=== PATIENT | female | born 1995 | race Caucasian/White ===

== ENCOUNTER 2017-01-08 16:25 | Inpatient (IN) | payer MEDICAID ==
[~2017-01-08] VITALS: Ht 170.2 cm; Wt 98.0 kg
--- NOTE | ~2017-01-08 | ECHO ---
Transthoracic Echocardiography Report (TTE) Demographics Patient Name DONALDO BARBER Date of Study 01/11/2017 Patient Number [id number] Visit Number [id number] Date of 1995 Room Number G6323 Accession Number [id number] Gender Female Age 21 year(s) Referring Chris Bueno MD Plant Utility Person Rosy Castellanos [facility], Physician Dae Beck RVT Physician Interpreting Devonte Awan MD Women'S Swim Coach Physician Supervising Ordering Physician Devonte Awan MD, MD/MLP Nurse Stress Computer Salesperson Retail Conclusions Summary The estimated left ventricular ejection fraction is 60-65%. The left ventricle is mildly dilated . Mild concentric left ventricular hypertrophy. Diastolic assessment reveals normal relaxation. The left atrium is dilated by LA volume index measurement. Procedure Type of Study TTE procedure:2D Echocardiogram. Procedure Date Date: 01/11/2017 Start: 10:13 AM Study Location: Inpatient Portable Technical Quality: Adequate visualization Indications:Pulmonary edema. Appropriate Use Criteria: 9 Patient Status: STAT Rhythm: Within normal limits HR: 60 bpm BP: 106/57 mmHg M-Mode/2D Measurements LV Diastolic Dimension: 5.24 cm LV Systolic Dimension: 3.55 cm LV Septum Diastolic: 0.95 cm LV Septum Systolic: 3.99 cm LV PW Diastolic: 0.97 cm AO Root Dimension: 2.3 cm Cardiac Output: 4.82 l/min AV Cusp Separation: 1.7 cm RV Diastolic Dimension: 2.42 cm LA volume: 67 ml IVC Inspiration: 1.06 cm LVOT: 2.1 cm RV Base: 3.68 cm LVOT VTI: 23.2 cm RV Mid: 3.22 cm LV Stroke volume: 80.31 ml TAPSE: 2.3 cm Doppler Measurements AV Peak Velocity: 1.65 m/s MV Peak E-Wave: 1.3 m/s AV Peak Gradient: 10.89 mmHg MV Peak A-Wave: 0.52 m/s AV Mean Gradient: 5 mmHg MV E/A Ratio: 2.52 LVOT Peak Velocity: 1.02 m/s MV P1/2t: 66 msec TR Gradient:24.21 mmHg PV Peak Velocity: 1.18 m/s Estimated RAP:5 mmHg PV Peak Gradient: 5.57 mmHg Estimated RVSP: 29 mmHg Estimated PASP: 29.21 mmHg E' Lateral Velocity: 0.13 m/s A' Lateral Velocity: 0.07 m/s MV E/E' Ratio: 9 Findings Left Ventricle The estimated left ventricular ejection fraction is 60-65%. The left ventricle is mildly dilated . Diastolic assessment reveals normal relaxation. Right Ventricle Normal right ventricle structure and function. Left Atrium Normal left atrial size. Right Atrium Normal right atrial size. Mitral Valve Trivial mitral regurgitation by color Doppler. Aortic Valve Normal aortic valve structure and function. Tricuspid Valve Mild tricuspid regurgitation by color Doppler. Pulmonic Valve The pulmonic valve is not well visualized. Pericardial Effusion No evidence of pericardial effusion. Miscellaneous Visualized portions of the aortic root and ascending aorta appear normal in size. Signature dtt: Lv Whitney (cardio) dtd: 01/11/17 1013 Physician Self Edit
--- NOTE | ~2017-01-08 | ER ---
PATIENT'S NAME: DONALDO BARBER [facility] AGE: 21 Y [address] ROOM: G6323 [place], [place] [address] [facility] ADMIT DATE: 01/08/2017 ER/Outpatient Report DISCHARGE DATE: FAMILY PHYSICIAN: KARELY LISA MD ATTENDING PHYSICIAN: KARELY LISA HISTORY OF PRESENT ILLNESS: The patient is a 21-year-old female who is sent over by Dr. Cee from [facility] today after two-week visit for chief complaint of chest pain that radiates to the back, worse with deep inhalation. The patient had a spontaneous vaginal delivery at term two weeks ago and started noticing yesterday or in the past couple days that it has been a little bit more difficult to breathe especially when up and around because of deep breaths. She says the worst is when she lies down. She says she has barely been able to lie down and has had to sit up most of the time, really not able to sleep last night and was evaluated in clinic today for visit. She mentioned this to Dr. Cee and he proceeded with obtaining labs. Per outside records, the patient's D-dimer was elevated to 824. Her CMP was normal. GFR was greater than 60 and creatinine was 0.71, BUN was 14, electrolytes were all normal, CO2 was mildly low at 21, calcium mildly low at 8.9. CBC showed a mildly low hemoglobin at 11.4, otherwise, no elevation of white count and the remainder of the CBC was normal. No x-ray was obtained during clinic. The patient denies any headache, vision change, abdominal pain, nausea, vomiting, urinary symptoms, or increased swelling. She denies any calf pain or tenderness. The patient denies any rash or other skin changes. The patient has no known medical allergies. CURRENT MEDICATIONS: Include 800 mg of Motrin p.r.n. for pain. PAST MEDICAL HISTORY: Includes previous sacral surgeries x4 and the recent vaginal delivery two weeks ago. Otherwise, no significant past medical history. PAST SOCIAL HISTORY: The patient denies tobacco use, alcohol or drug use. REVIEW OF SYSTEMS: A complete comprehensive review of systems was completed and is negative except as noted above in the HPI. PHYSICAL EXAMINATION: VITAL SIGNS: Weight 85.9 kilograms; BP 136/72; pulse 110; respirations 16; temp 97.6, TM; O2 saturation 95% on room air. GENERAL: The patient appears mildly in pain. Does not appear tachypneic, but PATIENT'S NAME: DONALDO BARBER [facility] AGE: 21 Y [address] ROOM: [place] [address] LOCATION: [facility]PCU ADMIT DATE: 01/08/2017 ER/Outpatient Report DISCHARGE DATE: FAMILY PHYSICIAN: KARELY LISA MD ATTENDING PHYSICIAN: KARELY LISA is mildly distressed when discussing need for further evaluation. The patient's mother was initially present and when the patient's mother left with patient's baby, the patient got really upset and became a little tachypneic and complained of pain with deep inhalation. HEENT: Normocephalic, atraumatic. Moist mucous membranes. Nares are patent without discharge. No lymphadenopathy. CHEST: Decreased breath sounds, right lower lobe. Mildly decreased breath sounds in left lower lobe. Clear to auscultation in upper lobes. CARDIOVASCULAR: Mildly tachycardic but no murmurs, rubs, or gallops appreciated. Pulses are strong and cap refill less than 2 seconds. ABDOMEN: Normal to inspection. Soft, nontender, nondistended. Bowel sounds normal. EXTREMITIES: Moves all extremities. No pedal edema. Nontender. No calf tenderness. SKIN: Warm, dry, and intact. The patient is independent with her ADLs and appears well nourished and hydrated. LABORATORY DATA AND X-RAYS: No repeat labs were performed as they were just collected at [facility]. Imaging: CT chest with PE protocol was performed with results of localized parenchymal opacity of the right lower lobe posteriorly and inferiorly which is suspicious for infarct. There is a pulmonary embolism at the distal interlobar pulmonary artery on the right extending into the periphery of the lower lobe. EMERGENCY DEPARTMENT COURSE: The patient remained mildly tachycardic but not tachypneic and O2 sats remained greater than 95% on room air. The patient did not require any supplemental oxygen, but continued to be mildly distressed especially with deep inhalation and when she was emotionally upset with results and options for treatment, knowing that she cannot breastfeed. ASSESSMENT: Pulmonary embolism with pulmonary infarct. PLAN: Findings and assessment were discussed with evaluating physician Dr. Cee. Options were discussed with the patient. It was determined secondary to the patient's tachycardia and extensive pulmonary embolism, admission for overnight observation would be the best for the patient at this time. Plan was discussed with Dr. Cee and he agreed to admission. Please see his H and P for further details and plan. At this time, the patient will be admitted to Dr. Cee's care. PATIENT'S NAME: DONALDO BARBER [facility] AGE: 21 Y [address] ROOM: [place] [address] LOCATION: [facility] ADMIT DATE: 01/08/2017 ER/Outpatient Report DISCHARGE DATE: FAMILY PHYSICIAN: KARELY LISA MD ATTENDING PHYSICIAN: KARELY LISA ERICA STANLEY STUDENTMD RESIDENT FOR MD MARCIANO VARGHESE/cb /[id number] d: 01/09/17 0000 t: 01/14/17 0618, OUTPATIENT REPORT
--- NOTE | ~2017-01-08 | DS ---
PATIENT'S NAME: DONALDO BARBER [facility] AGE: 21 Y [address] ROOM: [place] [address] LOCATION: GPCU ADMIT DATE: 01/08/2017 Discharge Summary DISCHARGE DATE: 01/11/2017 FAMILY PHYSICIAN: Christiano Perez MD ATTENDING PHYSICIAN: Christiano Perez DISCHARGE DIAGNOSES: 1. Bilateral pulmonary emboli with right lobe infarct. 2. Tachycardia. 3. Lightheadedness. 4. Anemia due to , which is stable. 5. Thoracic back pain. 6. Elevated D-dimer. 7. Urinary tract infection. CONSULTS DURING ADMISSION: Pulmonology. PROCEDURES DURING ADMISSION: None. HOSPITAL COURSE: The patient is a 21-year-old female, who had recently given 2 weeks prior who presented to the office with sharp chest pains on inspiration along with tachycardia and was found to have an elevated D-dimer and then a CT that showed bilateral pulmonary emboli with infarct. The patient was admitted and started on Lovenox due to her desire to continue to breast-feed. The patient had IV fluids and worked with physical therapy, but was lightheaded, tachycardic and was also being treated with both IV and oral medications for pain control. Pulmonology was consulted and she had an ultrasound which showed no effusions. The patient remained stable on telemetry and upon day of discharge, she was no longer tachycardic, had pain under control with oral medications, and was able to ambulate and exert herself with minimal difficulty. The patient also had a UTI during her hospital stay which was treated with Rocephin. DISCHARGE CONDITION: Stable. DISPOSITION: Home. DISCHARGE MEDICATIONS: Please see list. DISCHARGE INSTRUCTIONS: The patient has continued to do Lovenox b.i.d. for 6 months. We will have her follow up in a couple days in clinic to recheck to make sure that her oxygen saturations and heart rate are stable. The patient was advised if she develop any chest pain, shortness of breath or any concerns, she is to go to the emergency room immediately. The patient is to take Percocet as needed for the pain. The patient voiced understanding. PATIENT'S NAME: DONALDO BARBER [facility] AGE: 21 Y [address] ROOM: [address] [place] [address] LOCATION: GPCU ADMIT DATE: 01/08/2017 Discharge Summary DISCHARGE DATE: 01/11/2017 FAMILY PHYSICIAN: Christiano Perez MD ATTENDING PHYSICIAN: Christiano Perez MD JARRELL CHILDERS/modl /[id number] d: 01/16/17 0107 t: 01/28/17 1334, DISCHARGE SUMMARY
--- NOTE | ~2017-01-08 | ER ---
PATIENT'S NAME: DONALDO BARBER [facility] AGE: 21 Y [address] ROOM: [address] [place] [address] [facility] ADMIT DATE: 01/08/2017 ER/Outpatient Report DISCHARGE DATE: FAMILY PHYSICIAN: KARELY LISA MD ATTENDING PHYSICIAN: KARELY LISA This patient is a 21-year-old female who came in with chest pain, shortness of breath, and an elevated D-dimer, was noted in the clinic. She was sent over here to the emergency department to get a CT scan of the chest with PE protocol. The patient is . I saw the patient along with resident, who is working with me here down in the emergency department. See Dr. evaluation of this patient. I agree with her evaluation, impression, and treatment plan. MD MARCELO VARGHESE/modl /[id number] d: 01/08/17 2316 t: 01/09/17 0604, OUTPATIENT REPORT
--- NOTE | ~2017-01-08 | HP ---
PATIENT'S NAME: ELISABETH [facility] AGE: 21 Y [address] ROOM: [place] [address] LOCATION: GPCU ADMIT DATE: 01/08/2017 History & Physical DISCHARGE DATE: FAMILY PHYSICIAN: KARELY LISA MD ATTENDING PHYSICIAN: KARELY LISA DATE OF SERVICE: CHIEF COMPLAINT: Chest pain and shortness of breath. HISTORY OF PRESENT ILLNESS: The patient is a 21-year-old female, who recently gave 2 weeks ago who presented to the clinic with chest pain and shortness of breath. The patient states it hurts when she takes a deep breath. If she does not take pain medicine, she is unable to take a deep breath. The patient denies any fevers, chills, nausea, vomiting, or abdominal pain. PAST MEDICAL HISTORY: No chronic illnesses. PAST SURGICAL HISTORY: None. ALLERGIES: NO KNOWN MEDICAL ALLERGIES. MEDICATIONS: 1. vitamin. 2. Motrin. SOCIAL HISTORY: The patient denies any tobacco use. FAMILY HISTORY: Noncontributory. REVIEW OF SYSTEMS: A complete review of systems obtained, pertinent positives and negatives as mentioned in the HPI. OBJECTIVE: VITAL SIGNS: Temperature 97.7, heart rate 101, respirations 20, blood pressure 101/55. GENERAL: The patient is alert and oriented. Appears in no acute distress. PATIENT'S NAME: ELISABETH [facility] AGE: 21 Y [address] ROOM: [place] [address] LOCATION: GPCU ADMIT DATE: 01/08/2017 History & Physical DISCHARGE DATE: FAMILY PHYSICIAN: KARELY LISA MD ATTENDING PHYSICIAN: KARELY LISA HEENT: Normocephalic and atraumatic. Eyes: Conjunctivae clear. No scleral icterus. Mouth: Oropharynx grossly moist and pink. No lesions or exudates. NECK: Supple. No lymphadenopathy or thyromegaly. HEART: Regular rate rhythm. No rubs, murmurs, or gallops. LUNGS: Clear to auscultation bilaterally. ABDOMEN: Bowel sounds present. Nontender. EXTREMITIES: No cyanosis, clubbing, or edema. VASCULAR: Pulses +2 and equal bilaterally. SKIN: No rash or lesions. LYMPHATICS: No lymphadenopathy. NEURO: Cranial II through XII grossly intact. MUSCULOSKELETAL: Full range of motion of lower extremities. LABORATORY DATA: CBC showed mild anemia, which is typical after being . CMP is normal, and a D-dimer is elevated. CT per PE protocol showed multiple pulmonary emboli and her UA showed markers of infection. ASSESSMENT: 1. Multiple pulmonary emboli. 2. Tachycardia. 3. Anemia. 4. Urinary tract infection. PLAN: At this time, we will place the patient in the hospital and the patient wants to breastfeed and after doing research with pharmacy, it is determined that Lovenox is the safest for this and we will start this per pharmacy protocol. We will give Rocephin for UTI. We will continue to monitor fluid intake and also work on pain control with both IV and then transitioning to oral medications. MD JARRELL CHILDERS/cb /[id number] D: 333 T: HISTORY & PHYSICAL
--- NOTE | ~2017-01-08 | ENPV ---
Vascular Lower Extremities DVT Study Procedure Demographics Patient Name DONALDO BARBER Date of Study 01/09/2017 Patient Number [id number] Gender Female Date of 1995 Age 21 Visit Number [id number] Height Accession Number [id number] Weight Room Number G6323 BSA BMI Referring Coleman Rodrigezjonas Noonan Interpreting Darian Torres MD Physician MD Physician Chris Bueno MD Physician Ordering Physician Coleman Noonan Casting Carrier MD Distillery Miller David Dan Conclusions Summary No evidence of deep vein thrombosis or superficial thrombophlebitis in the lower extremities bilaterally . Procedure Type of Study: Veins:Lower Extremities DVT Study, Venous Duplex Lower Extremity Bilateral. Indications for Study:Pulmonary embolism. Appropriate Use Criteria:7 Patient Status:Routine. Study Location:Inpatient Portable. Technical Quality:Adequate visualization. Velocities are measured in cm/s ; Diameters are measured in cm Right Lower Extremities DVT Study Measurements Right 2D and Doppler Measurements + + + + +------+------+ + !Location !Visualized!Compressibility!Thrombosis!Signal!Reflux!Reflux ! ! ! ! ! ! ! !(sec) ! + + + + +------+------+ + !GSV Thigh !Yes !Yes !None !Phasic! ! ! + + + + +------+------+ + !Common !Yes !Yes !None !Phasic! ! ! !Femoral ! ! ! ! ! ! ! + + + + +------+------+ + !Prox !Yes !Yes !None !Phasic! ! ! !Femoral ! ! ! ! ! ! ! + + + + +------+------+ + !Mid Femoral!Yes !Yes !None !Phasic! ! ! + + + + +------+------+ + !Dist !Yes !Yes !None !Phasic! ! ! !Femoral ! ! ! ! ! ! ! + + + + +------+------+ + !Popliteal !Yes !Yes !None !Phasic! ! ! + + + + +------+------+ + !Gastroc !Yes !Yes !None ! ! ! ! + + + + +------+------+ + !PTV !Yes !Yes !None ! ! ! ! + + + + +------+------+ + !Peroneal !Yes !Yes !None ! ! ! ! + + + + +------+------+ + Left Lower Extremities DVT Study Measurements Left 2D and Doppler Measurements + + + + +------+------+ + !Location !Visualized!Compressibility!Thrombosis!Signal!Reflux!Reflux ! ! ! ! ! ! ! !(sec) ! + + + + +------+------+ + !GSV Thigh !Yes !Yes !None !Phasic! ! ! + + + + +------+------+ + !Common !Yes !Yes !None !Phasic! ! ! !Femoral ! ! ! ! ! ! ! + + + + +------+------+ + !Prox !Yes !Yes !None !Phasic! ! ! !Femoral ! ! ! ! ! ! ! + + + + +------+------+ + !Mid Femoral!Yes !Yes !None !Phasic! ! ! + + + + +------+------+ + !Dist !Yes !Yes !None !Phasic! ! ! !Femoral ! ! ! ! ! ! ! + + + + +------+------+ + !Popliteal !Yes !Yes !None !Phasic! ! ! + + + + +------+------+ + !Gastroc !Yes !Yes !None ! ! ! ! + + + + +------+------+ + !PTV !Yes !Yes !None ! ! ! ! + + + + +------+------+ + !Peroneal !Yes !Yes !None ! ! ! ! + + + + +------+------+ + Signature dtt: STEVENSON HERNANDEZ dtsarah: 01/09/17 0848 Physician Self Edcaden
--- NOTE | ~2017-01-08 | CON ---
[facility] 21 [facility] [address] ROOM: [place] [address] LOCATION: GPCU ADMIT DATE: 01/08/2017 Consultation DISCHARGE DATE: 01/11/2017 FAMILY PHYSICIAN: Christiano Perez MD ATTENDING PHYSICIAN: Christiano Perez DATE OF CONSULTATION: 01/11/2017 REFERRING PHYSICIAN: Krishan Pearl MD INDICATION: Persistent shortness of breath with recent diagnosis of PE. HISTORY OF PRESENT ILLNESS: This is a 21-year-old female, admitted for shortness of breath. CT showed a right-sided PE with pulmonary infarct. She is 2 weeks . She reports that her and delivery were both uneventful. She developed shortness of breath and back pain on Thursday January 05, 2017, that has persisted, so she presented to the clinic for evaluation. She denies any cough, fevers, chills, nausea, vomiting, or syncope. Lower extremity Dopplers have been negative. She is currently 95% on room air. D-dimer was checked at the clinic and was elevated; therefore, she was sent for CT of the chest and subsequently admitted. She reports that with pain pills she feels that her breathing is normal at rest. She does not notice any pain with deep inspiration when utilizing the pain pills like she did prior to admission. She also notes some lightheadedness and shortness of breath with ambulation, but overall this has significantly improved with the pain pills as well. She denies any history of smoking, cancer, family history, or prior PE/DVT. PAST MEDICAL HISTORY: No chronic illnesses. ALLERGIES: SEE MAR. MEDICATIONS: See MAR. FAMILY HISTORY: Negative for lung disease or heart disease. SOCIAL HISTORY: The patient denies any tobacco use, alcohol use, or illicit drug use. REVIEW OF SYSTEMS: A 12-point review of systems negative except for what is noted in the HPI. [facility] A[facility] 21 Y [address] ROOM: [place] [address] LOCATION: GPCU ADMIT DATE: 01/08/2017 Consultation DISCHARGE DATE: 01/11/2017 FAMILY PHYSICIAN: Christiano Perez MD ATTENDING PHYSICIAN: Christiano Perez PHYSICAL EXAMINATION: VITAL SIGNS: Blood pressure 119/58, pulse 73, respirations 16, temperature 98.5, she is 95% on room air. GENERAL: This is a 21-year-old female, who is well developed, well nourished, is alert and oriented x3 and appears in no acute distress at the time of exam. HEENT. Head: Normocephalic and atraumatic. Eyes: Clear. NECK: Supple. No adenopathy. No carotid bruits or JVD. LUNGS: Clear throughout bilaterally. No wheezes or rales. HEART: Regular rate and rhythm without murmur, gallop, or rub. ABDOMEN: Soft, nontender, and nondistended. Bowel sounds x4. EXTREMITIES: No cyanosis, clubbing, or edema. DIAGNOSTIC DATA: Chest x-ray shows low lung volumes, but no significant pleural effusion. The images were personally reviewed. Chest ultrasound shows minimal right-sided pleural effusion and no left-sided effusion. The preliminary report on the echo shows no RV strain and normal EF. ASSESSMENT: 1. Dyspnea on exertion due to recent acute pulmonary embolism which can persist until clots dissolve. 2. Acute pulmonary embolism seems provoked due to , is on subcu Lovenox due to nursing. 3. Right pulmonary infarct due to acute pulmonary embolism, most likely responsible for back discomfort. 4. Two-week . PLAN: Continue with low therapeutic dose of Lovenox. Reassurance provided regarding the most likely benign nature of her back pain. She is okay to discharge home today and follow up in our clinic in 6 weeks. Thank you for the consult and opportunity to participate in the patient's care. GLADYS ST APRN FOR MD DAMASO ALEXIS/cb /[id number] d: 01/30/17 0229 t: 02/19/17 1400, CONSULTATION REPORT
[~2017-01-08 16:25] MED LIST: FEOSOL325 MG PO; PRENATAL 1+1)(P1 TAB PO
[2017-01-08] MEDS ORDERED: NORCO 5-325 TA1 EACH PO (19:18)
[2017-01-08] MEDS ORDERED: MOTRIN800 MG PO (19:19)
--- NOTE | 2017-01-09 04:43 | NUR ---
Significant Event: A/O x3. Up ad bill in room. HR's in 100's. SBP's in 100's-110's. On RA. Diminished lung sounds to R) lower lobe. Complaints of pain to back and when breathing. Percocet x3, last given at 0115. Gave two weeks ago. Family and baby at bedside. IV to R) hand SL. Follow up: Bilateral venous dopplers to lower extremeties.
--- NOTE | 2017-01-09 15:45 | NUR ---
Introduced self and role of care management to patient, her mother and MIL. Patient lives in [place] with and new baby. She plans home and will have help as needed at home. She thinks she will get to go home tomorrow. Denies discharge needs at this time. Will follow.
--- NOTE | 2017-01-09 18:50 | NUR ---
PATIENT UP TO CHAIR AND UP IN SUBRAMANIAN X1 W/ STAND BY ASSIST. C/O DIZZINESS, DIFFICULTY BREATHING AND INCREASE PAIN W/ ACTIVITY. PATIENT WANTS HER TO GIVE HER THE LOVENOX SHOTS AFTER DISMISSAL, F/U WITH TEACHING FOR HIM TONIGHT. FAMILY AT BEDSIDE ASSISTING WITH CARES FOR . PATIENT HAS OK TO RESUME 24 HRS AFTER CONTRAST DYE. 2 PERCOCET GIVEN Q 4 HRS THIS SHIFT, KEEPS BACK PAIN TOLERABLE. PLAN FOR DISCHARGE TOMORROW TO HOME.
--- NOTE | 2017-01-10 04:16 | NUR ---
Significant Event: Patient a/Ox3. VSS on RA. Patient is slightly hypertensive. SBP 90s-100s. MAPs all greater than 65. Patient did ambulate in the birch x1 and took a shower with minimal family assistance. Still has a lot of pain with activity and deep breaths. Percocet given x3, last dose at 0315. educated on administration of lovenox shot. Follow up: Home today
--- NOTE | 2017-01-10 18:55 | NUR ---
PATIENT INCREASING ACTIVITY, UP IN SUBRAMANIAN W/ STAND BY ASSIST. CONTINUES TO HAVE PAIN, SHORTNESS OF BREATH, LIGHTHEADEDNESS, DIZZINESS, WORSE WITH ACTIVITY. LATE THIS AFTERNOON, STATES THAT PAIN IN BACK FEELS LIKE FLUID OR SOMETHING MOVING. REPORTED TO DR MCGARRY. PULMONOLOGY CONSULT, DR SCOTT CALLED.
--- NOTE | 2017-01-11 04:36 | NUR ---
Significant event: Patient a/ox3. VSS on RA. Patient has not been making improvements with back pain and shortness of breath with ambulation. Pulmonology consulted per DR. Cee's orders. Will see this AM. Percocet given x1 for pain at 0320. Oxygen remains >90% on room air. Follow up: Pulmonology to see today. Home this afternoon?
[2017-01-11] MEDS ORDERED: PERCOCET 5-3251 EACH PO (14:18)
[2017-01-11] MEDS ORDERED: LOVENOX 8080 MG/0.8 SUB-Q (14:21)
--- NOTE | 2017-01-11 18:55 | NUR ---
D:Patient able to give Lovenox to herslef this morning without any difficulty. Did very well. Patient discharge this afternoon after got off work- dc'd at 1740. They had baby, and personal belongins. Patient had a Percocet prior to dc for discomfort on trip home. Has follow- up appointments. Released to , to return home. Patient feels ready.
== END 2017-01-11 17:40 | disposition disaster alternative care site (69) | DRG 776 ==
LOC: GMED 16:25 → GPCU 18:35
PROVIDERS: ADMIT Family Medicine
DX: O88.23 Thromboembolism in the puerperium (principal); I26.99 Other pulmonary embolism without acute cor pulmonale; O86.89 Other specified puerperal infections; O86.20 Urinary tract infection following delivery, unspecified; O90.81 Anemia of the puerperium; D64.9 Anemia, unspecified
CPT/HCPCS: J0696; J1650; J2270; J7030